=== PATIENT | female | born 2000 | race Caucasian/White ===

== ENCOUNTER 2022-01-13 15:46 | Emergency (ER) | payer OTHER, SELFPAY ==
--- NOTE | 2022-01-13 15:55 | ED.GENADULT ---
HPI - General Adult General Chief complaint: Skin/Abscess/Foreign Body Stated complaint: Nipple Pain Time Seen by Provider: 01/13/22 15:55 Source: patient and RN notes reviewed Mode of arrival: ambulatory Limitations: no limitations History of Present Illness HPI narrative: 21-year-old female presents to the [facility] with complaints of redness surrounding the nipple, nipple swelling and stated she has had drainage from it a couple of days ago. Symptoms x4 days. Denies fevers. Patient reports that she used to have her nipple pierced, removed prior to giving . Patient gave 6 to 7 months ago. Redness, swelling and pain started 4 days ago Related Data Home Medications Medication Instructions Recorded Confirmed norgestimate-ethinyl estradiol 1 tablet PO DAILY 01/13/22 01/13/22 [Sprintec (28)] Allergies Allergy/AdvReac Type Severity Reaction Status Date / Time No Known Allergies Allergy Unknown Verified 01/13/22 15:55 Review of Systems Review of Systems: All systems reviewed & are unremarkable except as noted in HPI and below Constitutional: Constitutional: Reports no additional constitutional complaints, Denies chills and Denies fever(s) Eyes: Eyes: Reports no additional eye complaints ENT: Reports system reviewed and no additional complaints, except as documented Cardiovascular: Cardiovascular: Reports no additional cardiovascular complaints Respiratory: Respiratory: Reports no additional respiratory complaints Gastrointestinal: Gastrointestinal: Reports no additional gastrointestinal complaints, Denies abdominal pain, Denies nausea and Denies vomiting Musculoskeletal: Musculoskeletal: Reports no additional musculoskeletal complaints Integumentary/Breasts: Skin/Breast: Reports as per HPI and Reports erythema (Areola redness and swelling of the nipple) Neurologic: Reports system reviewed and no additional complaints, except as documented Psychiatric: Psychiatric: Reports no additional psychiatric complaints Allergic/Immunologic: Allergic/Immunologic: Reports no additional allergic/immunologic complaints PMFSH Comments At the time of my signature, I reviewed and agree with the nursing past medical, surgical, social, and family history. There is no relevant family history pertinent to the patient complaint. Exam Const: General: healthy appearing, no acute distress and alert Nutritional Appearance: well nourished Orientation/consciousness: patient oriented x3 Limitations: no limitations HENMT: Head: normal to inspection Ears: external ears normal Eyes: Pupils: Equal, round and reactive pupils present Neck: Neck: normal visual inspection, no lymphadenopathy and no meningeal signs Chest: Chest palpation & inspection: normal inspection of the chest Resp: Effort & Inspection: normal respiratory effort and no use of accessory muscles Auscultation: clear to auscultation bilaterally, no crackles, no rales, no rhonchi and no wheezes Cardio: Rate: regular rate Rhythm: regular rhythm Skin: General skin exam: normal color Rashes: no rashes Other: Right areola redness with increased warmth and swelling extends 1 cm beyond circumferential of the areola, nipple is swollen. Firm, warm without fluctuance or drainage. Patient reports drainage 2 days ago. Neuro: General: patient oriented x3, moves all extremities, no meningeal signs and no focal motor deficits Cranial nerves: Yes Equal, round and reactive pupils present Speech: normal speech Gait exam (Neuro): Normal gait present Extrem: General: normal to inspection Psych: Appearance: grossly normal and well kempt Mental Status: mental status grossly normal Affect: normal affect Attitude: cooperative Thought content: Yes Normal thought content present Course Course Emergency Course: Discharge instructions reviewed with patient, as well as provided in writing per nursing staff. The instructions also include specific and strict return/GO T
[2022-01-13 15:58] VITALS: BP 118/69; PULSE 98; RESP 16; TEMP 35.8; O2SAT 100
== END 2022-01-13 16:12 | disposition home or self-care (01) ==
PROVIDERS: Emergency Provider Nurse Practitioner
DX: N61.0 Mastitis without abscess (principal)
CPT/HCPCS: 99213; G0463

== ENCOUNTER 2022-04-26 19:35 | Emergency (ER) | payer OTHER, SELFPAY ==
--- NOTE | ~2022-04-26 | XR_ITS ---
XR hand RT min 3V DATE: 04/26/2022 19:52 INDICATION: Right hand pain after punching something last night TECHNIQUE: 3 views COMPARISON: None FINDINGS: There is a minimally displaced fracture of the neck of the fifth metacarpal bone, of uncert ain age, possibly old. No other fracture or dislocation, periosteal reaction or bone destruction. IMPRESSION: Fifth metacarpal neck fracture, possibly old; recommend clinical correlation Reviewed, dictated and finalized at location A. IMPRESSION: Fifth metacarpal neck fracture, possibly old; recommend clinical co rrelation
--- NOTE | 2022-04-26 19:37 | ED.UPPEXIN ---
HPI - Extremity Injury (Upper) General Stated Complaint: Right Hand Pain Time Seen by Provider: 04/26/22 19:36 Source: patient Mode of arrival: ambulatory Limitations: no limitations History of Present Illness HPI narrative: Ms. Blackwell is a 22-year-old female patient presenting to the clinic today with complaints of right hand pain x1 day. She reports she punched something hard yesterday but does not recall what she punched. States she was upset so she punched something but she does not recall what she was upset about. Related Data Allergies Allergy/AdvReac Type Severity Reaction Status Date / Time No Known Allergies Allergy Unknown Verified 04/26/22 19:43 Review of Systems Review of Systems: Pertinent positives per HPI. Patient denies any fever, chills, rash, headache, visual changes, dizziness, cough, runny nose, sore throat, shortness of breath, chest pain, palpitations, nausea, vomiting, diarrhea, constipation, abdominal pain, or any urinary issues. PMFSH Comments At the time of my signature, I reviewed and agree with the nursing past medical, surgical, social, and family history. There is no relevant family history pertinent to the patient complaint. Exam Narrative: General: Well-developed, well nourished, in no apparent distress Head: Normocephalic, atraumatic. Cardio: Regular rate and rhythm, s1 and s2 normal, no murmur appreciated. Resp: Clear to auscultation bilaterally, no rhonchi, rales, wheezing or rubs. Musculoskeletal: No deformity, tender to palpation over the fourth and fifth metacarpals/fourth and fifth knuckles, swelling noted over the fourth and fifth knuckles and metacarpals, grossly normal range of motion, muscle strength strong and equal, peripheral pulse strong, no cyanosis, normal gait and station Course Course Emergency Course: Portions of this record may have been created with voice recognition software. Level of Care: Express Care Visit Vital Signs Vital signs: Vital signs reviewed MDM - Extremity Injury (Upper) MDM Narrative Medical decision making narrative: At the time of visit patient is resting comfortably on the exam table. She is having pain over the fourth and fifth metacarpals and PIP joints. X-ray of the right hand was performed and shows a probable fracture of the right fifth metacarpal neck. volar OCL was applied to the right hand. Referral given to Dr. Hurley. Supportive measures were discussed with the patient she voiced understanding of discharge instructions and agrees to the treatment plan. Differential Diagnosis Differential diagnosis: Likely finger sprain, dislocation of finger, Colles' fracture and fracture of hand Imaging Data My impression: Probable fracture of the right fifth metacarpal neck Radiologist's impression: [facility] [address] [place] [address] XRay Report Signed Patient: Chuy Bender : 2000 MR#: [id number] Age/Sex: 22 / F Acct:[id number] Loc: [facility]? ? ADM Date: 04/26/22Attending Dr: Ordering Physician: Everardo Justice APRN Date of Service: 04/26/22 Procedure(s): XR hand RT min 3V Accession Number(s): [id number] cc: Everardo Justice APRN; CANDY [employer]INTER PHYSICIAN~ XR hand RT min 3V DATE: 04/26/2022 19:52 INDICATION: Right hand pain after punching something last night? TECHNIQUE: 3 views? COMPARISON: None? FINDINGS: There is a minimally displaced fracture of the neck of the fifth metacarpal bone, of uncertain age, possibly old. ? No other fracture or dislocation, periosteal reaction or bone destruction. IMPRESSION: Fifth metacarpal neck fracture, possibly old; recommend clinical correlation? Reviewed, dictated and finalized at location A. Dictated By:? Abdiel Pollack MD? 04/26/221951 Signed By:? ? <Elec
[2022-04-26 19:42] VITALS: BP 126/85; PULSE 108; RESP 16; TEMP 36.5; O2SAT 99
== END 2022-04-26 20:11 | disposition home or self-care (01) ==
PROVIDERS: Emergency Provider Nurse Practitioner Family
DX: S62.336A Displaced fracture of neck of fifth metacarpal bone, right hand, initial encounter for closed fracture (principal); W22.8XXA Striking against or struck by other objects, initial encounter
CPT/HCPCS: 29125; 73130; 99214; G0463

== ENCOUNTER 2023-05-22 12:59 | Emergency (ER) | payer OTHER, SELFPAY ==
--- NOTE | 2023-05-22 13:02 | ED.FEMALEGU ---
HPI - Female Genitourinary General Chief complaint: Urogenital-Female Stated complaint: Blood In Urine Time Seen by Provider: 05/22/23 13:02 Source: patient Mode of arrival: ambulatory Limitations: no limitations History of Present Illness HPI Narrative: Patient is a 23-year-old female that states she has abdominal pain and blood in urine for 3 days. Also reports frequency. Does states she has had a new sexual partner and has some concern for STDs. Patient reports she is having pain with urination and is cold with fever over 100. States abdominal pain and right flank pain is sharp and has worsened over the last 3 days. Has been nauseous but denies any episodes of vomiting. Also reports constipation and has not had a bowel movement in several days which is abnormal for her. Has not taken any pain medicine today. Currently taking Macrobid and Pyridium for UTI that she started roughly 6 days ago. States her urine is orange all the time from the Pyridium but states at times it looks red. MD elicited complaint: dysuria Related Data Home Medications Medication Instructions Recorded Confirmed nitrofurantoin 100 mg DIRECTED 05/22/23 05/22/23 monohydrate/macrocrystals 100 mg capsule phenazopyridine 200 mg tablet 200 mg DIRECTED 05/22/23 05/22/23 Allergies Allergy/AdvReac Type Severity Reaction Status Date / Time No Known Allergies Allergy Unknown Verified 04/26/22 19:43 Review of Systems Review of Systems: All systems reviewed & are unremarkable except as noted in HPI and below Constitutional: Constitutional: Denies chills, Reports fever(s), Denies headache(s), Denies malaise and Denies weakness Eyes: Eyes: Denies change in vision, Denies eye discharge and Denies irritation ENT: Denies otalgia, Denies headache(s), Denies nasal congestion, Denies nasal discharge, Denies sinus pain and Denies sore throat Cardiovascular: Cardiovascular: Denies chest pain, Denies edema, Denies palpitations and Denies dyspnea Respiratory: Respiratory: Denies cough and Denies dyspnea Gastrointestinal: Gastrointestinal: Reports abdominal pain, Denies diarrhea, Reports nausea and Denies vomiting Genitourinary: Genitourinary: Reports hematuria, Reports nocturia, Reports dysuria, Reports flank pain and Reports urinary urgency Musculoskeletal: Musculoskeletal: Denies back pain and Denies numbness Integumentary/Breasts: Skin/Breast: Denies pruritus and Denies rash Neurologic: Denies headache(s), Denies numbness and Denies weakness Psychiatric: Psychiatric: Reports no additional psychiatric complaints Endocrine: Endocrine: Denies palpitations PMFSH Comments At time of signature, agree with nursing past medical, surgical, social and family history. There is no relevant family history pertinent to the presenting complaint. Exam Const: General: cooperative, healthy appearing, comfortable, no acute distress and well nourished Nutritional Appearance: well nourished Orientation/consciousness: patient oriented x3 HENMT: Head: normocephalic and atraumatic Ears: external ears normal Face/Nose/Sinus: Normal external nose present, Normal nares present and normal facial exam Face and sinus: normal facial exam Eyes: General: appearance normal, both eyes and all related structures Pupils: Equal, round and reactive pupils present EOM: EOMs intact bilaterally Neck: Neck: normal visual inspection, full ROM and supple Chest: Chest palpation & inspection: normal inspection of the chest Resp: Effort & Inspection: normal respiratory effort and able to speak in complete sentences Cardio: Rate: regular rate Rhythm: regular rhythm GI: Inspection: normal to inspection GI Palp: Yes abdominal tenderness, Yes Soft to palpation, Yes Tenderness to palpation present (GI) (Right upper quadrant and pelvis), Yes Guarding due to palpation present (GI) (With right upper quadrant palpation), No Palpable mass present and No Rebound tenderness present A
[2023-05-22 13:08] VITALS: BP 118/67; PULSE 94; RESP 14; TEMP 37.3; O2SAT 100
== END 2023-05-22 13:34 | disposition short-term general hospital (02) ==
PROVIDERS: Emergency Provider Nurse Practitioner Family
DX: R10.11 Right upper quadrant pain (principal); R31.9 Hematuria, unspecified
CPT/HCPCS: 81003; 81025; 87086; 87088; 87491; 87591; 87661; 99214; G0463

== ENCOUNTER 2023-05-22 13:55 | Observation (INO) | payer OTHER, SELFPAY ==
--- NOTE | ~2023-05-22 | CT_ITS ---
EXAMINATION: CT abdomen pelvis w con DATE: 05/22/2023 16:36 INDICATION: Right flank pain. Hematuria. TECHNIQUE: Computed tomography (CT) of the abdomen and pelvis was performed with 100 mL Omnipaque-350 intravenous contrast. Automated exposure control and iterative reconstruction technique were employe d. The dose-length product was 320.11 mGy-cm. COMPARISON: None FINDINGS: Lung bases are clear. Heart size is normal. No pericardial or pleural effusion. Liver, gallbladder, s pleen, pancreas and bilateral adrenal glands are normal. 5 mm cyst at the upper pole of the left kidn ey. There are small geographic regions of hypoenhancement at the mid to upper right kidney suspicious for pyelonephritis. No hydronephrosis or evident urolithiasis. Couple tiny foci of gas within the bl adder. Uterus and bilateral adnexa are unremarkable. Bowels including the appendix are normal. Mild t horacolumbar dextrocurvature. IMPRESSION: 1. Geographic regions of hypoenhancement in the right kidney suspicious for pyelonephritis.. Reviewed, dictated and finalized at location A. IMPRESSION: 1. Geographic regions of hypoenhancement in the right kidney suspicious for adrien lonephritis..
[2023-05-22 14:05] VITALS: BP 126/67; PULSE 83; RESP 16; TEMP 36.6; O2SAT 100
[2023-05-22 15:35] LABS: Basophils Percent Auto 0.3 % (0.2-1.2); Eosinophils Percent Auto 0.1 % (0-4.4); Hematocrit 42.9 % (37.0-47.0); Hemoglobin 14.4 g/dL (12.0-15.0); Immature Granulocyte Absolute 0.04 K/mm3 (0.00-0.031); Immature Granulocyte Percent A 0.4 % (0-0.5); Lymphocytes Absolute Auto 0.85 K/mm3 (0.9-3.2); Mean Corpuscular HGB Conc 33.6 g/dl (32-36); Mean Corpuscular Volume 92.3 fl (80-100); Mean Platelet Volume 9.5 fl (7.4-10.4); Monocytes Absolute Auto 1.1 K/mm3 (0.1-0.6); Monocytes Percent Auto 10.1 % (2.6-8.5); Neutrophils Absolute Auto 8.6 K/mm3 (1.3-6.7); Neutrophils Percent Auto 81.1 % (45.5-73.1); Platelet Count Result 242 k/mm3 (150-375); Red Blood Count 4.65 M/mm3 (4.2-5.4); Red Cell Distribution Width 12.9 % (11.5-14.5); White Blood Count 10.6 K/mm3 (4.5-10.0)
[2023-05-22 15:43] LABS: Appearance Urine Cloudy (Clear); Bacteria Urine Rare /hpf; Bilirubin Urine 1+ (Negative); Blood Urine Negative (Negative); Color Urine Dark Yellow (Yellow); Glucose Urine UA Negative (Negative); Ketones Urine Trace mg/dL (Negative); Leukocyte Esterase Ur 1+ LEU/UL (Negative); Nitrate Urine Positive (Negative); Non Pathogenic Casts 0-2; Protein Urine 1+ mg/dL (Negative); RBC Urine 0-2 /hpf (0-2); Specific Grav Ur 1.017 (1.001-1.035); Squamous Epithelial Cell Urine Moderate /hpf (Few)
[2023-05-22 15:44] LABS: Alanine Aminotransferase 27 U/L (6-35); Alkaline Phosphatase 72 U/L (38-126); Anion Gap 10 mmol/L (8-16); Aspartate Amino Transferase 33 U/L (14-36); Bilirubin,Total 0.9 mg/dL (0.2-1.3); Blood Urea Nitrogen 8 mg/dL (7-17); Calcium 9.5 mg/dL (8.4-10.2); Carbon Dioxide 27 mmol/L (22-30); Chloride 96 mmol/L (98-107); Estimated CRCL calculation 92 ml/min; Estimated Glomerular Filt Rate > 60; Glucose 118 mg/dL (65-110); Potassium 3.8 mmol/L (3.4-5.0); Sodium 133 mmol/L (137-145)
[2023-05-22 15:46] LABS: Add Urine Microscopic? YES
--- NOTE | 2023-05-22 16:06 | ED.ABDPAIN ---
HPI - Abdominal Pain General Chief Complaint: Abdominal Pain Stated Complaint: ABD PAIN, HEMATURIA X3D Time Seen by Provider: 05/22/23 15:41 History of Present Illness HPI narrative: Patient is a 23-year-old female presenting with flank pain. Patient states over the last several days she has had right-sided flank pain associated with dysuria and hematuria. States that she went to urgent care who advised that she come in for evaluation. Reports nausea but no vomiting. Denies changes in bowel movements. Denies fevers, headache, chest pain, shortness of breath, cough, leg swelling. States that she does have some right lower quadrant pain as well. Related Data Allergies Allergy/AdvReac Type Severity Reaction Status Date / Time No Known Allergies Allergy Unknown Verified 05/22/23 17:03 Review of Systems Review of Systems: All systems reviewed & are unremarkable except as noted in HPI and below PMFSH Social History Social History Smoking packs per day: 0.5 Smoking cigarettes per day: 10.0 Years smoked: 5 Smoking pack-years: 2.50 Smoking status: Current every day smoker Tobacco type: cigarettes Alcohol intake: current Drinks per week: 14 Substance use type: marijuana Last use: 05/18/2023 Lack of Transportation: YES Lack of Food: Sometimes True Current Housing: I Do Not Have Housing Concerned About Future Housing: YES Difficulty Paying Gas/Electric Bills: YES Difficulty Paying for Meds: No Currently Unemployed: YES Education: Grade School Difficulty w/ Childcare or Family Care: No Spiritual care concerns: No Exam Narrative: GENERAL: Uncomfortable appearing, in no acute distress, pleasant and cooperative HEAD: Normocephalic, atraumatic. EYES: PERRLA and EOMI. ENT: Nares clear, no rhinorrhea or epistaxis. Mucous membranes moist. NECK: Supple. CHEST: Clear to auscultation. No respiratory distress. HEART: Regular rate and rhythm. No murmur heard. Normal peripheral pulses. ABDOMEN: Soft, mild right lower quadrant tenderness without guarding or rebound; + right CVA tenderness EXTREMITIES: Normal range of motion. No edema. SKIN: Warm, dry, no rash. NEURO: No focal deficits. Alert and oriented x3. PSYCH: Normal mood and affect. Course Vital Signs Vital signs: Vital Signs Temperature 97.9 F 05/22/23 14:05 Pulse Rate 83 05/22/23 14:05 Respiratory Rate 16 05/22/23 14:05 Blood Pressure 126/67 05/22/23 14:05 Pulse Oximetry 100 05/22/23 14:05 Oxygen Delivery Room Air 05/22/23 14:05 Temperature 97 F L 05/25/23 05:34 Pulse Rate 69 05/25/23 05:34 Respiratory Rate 18 05/25/23 07:54 Blood Pressure 106/60 05/25/23 05:34 Pulse Oximetry 99 05/25/23 07:54 Oxygen Delivery Room Air 05/25/23 07:54 MDM - Abdominal Pain MDM Narrative Medical decision making narrative: Patient is a 23-year-old female presenting with right flank pain and hematuria. Vitals within normal limits. Exam remarkable for the above. UA with positive nitrates, many WBCs. Patient CT abdomen pelvis is concerning for pyelonephritis. Patient has been given a dose of IV Rocephin. She is receiving a second liter of fluids. Feel it is safest to keep her in the hospital for IV antibiotics and monitoring. Patient is agreeable with this plan. I spoke with the hospitalist who is excepted her for admission. Differential Diagnosis Differential diagnosis: Likely abdominal pain, calculus of kidney, diverticulitis, pancreatitis and other (Pyelonephritis, UTI, GINA, dehydration) Medical Records Attestation: I reviewed the patient's medical records. Lab Data Attestation: I reviewed the patient's lab results. 05/25/23 04:47 05/25/23 04:47 Labs: Lab Results 05/22/23 Range/Units 15:26 WBC 10.6 H (4.5-10.0) K/mm3 RBC 4.65 (4.2-5.4) M/mm3 Hgb 14.4 (12.0-15.0) g/dL Hct 42.9 (37.0-47.0)
[2023-05-22 16:19] LABS: Pregnancy On Board Control Positive; Urine Pregnancy Test Negative
[2023-05-22] MEDS: SODIUM CHLORIDE 0.9% IV 1,000 ML 999 ML IV CONT ×2 (16:20→18:32)
[2023-05-22] MEDS: HYDROmorphone HCL INJ (*CRX) 1 MG/ML SYR 0.5 MG IV PUSH (16:21)
[2023-05-22 16:54] VITALS: PULSE 102; RESP 22; O2SAT 97
[2023-05-22 17:03] VITALS: BP 130/83; PULSE 99; RESP 22; O2SAT 98
[2023-05-22 19:33] VITALS: BP 144/99; PULSE 85; RESP 18; O2SAT 98
--- NOTE | 2023-05-22 20:11 | PM.IMHP ---
H&P: HPI History of Present Illness Date/Time: 05/22/23 20:11 Chief Complaint: Flank pain Narrative: This is a 23-year-old female with known significant past medical history patient presents with back pain and pain and burning with urination for letter last week or so, nausea, vomiting. Patient had Macrobid in the outpatient setting. EXAMINATION: CT abdomen pelvis w con DATE: 05/22/2023 16:36 INDICATION: Right flank pain. Hematuria. TECHNIQUE: Computed tomography (CT) of the abdomen and pelvis was performed with 100 mL Omnipaque-350 intravenous contrast. Automated exposure control and iterative reconstruction technique were employed. The dose-length product was 320.11 mGy-cm. COMPARISON: None FINDINGS: Lung bases are clear. Heart size is normal. No pericardial or pleural effusion. Liver, gallbladder, spleen, pancreas and bilateral adrenal glands are normal. 5 mm cyst at the upper pole of the left kidney. There are small geographic regions of hypoenhancement at the mid to upper right kidney suspicious for pyelonephritis. No hydronephrosis or evident urolithiasis. Couple tiny foci of gas within the bladder. Uterus and bilateral adnexa are unremarkable. Bowels including the appendix are normal. Mild thoracolumbar dextrocurvature. IMPRESSION: 1. Geographic regions of hypoenhancement in the right kidney suspicious for pyelonephritis.. Review of Systems Review of Systems: Flank pain, pain or burning urination. Constitutional: Constitutional: Reports chills, Reports fatigue, Reports fever(s), Reports malaise, Denies night sweats and Reports poor appetite Eyes: Eyes: Denies change in vision ENT: Denies dysphagia, Denies vertigo, Denies dizziness and Denies odynophagia Cardiovascular: Cardiovascular: Denies chest pain, Denies radiating jaw, neck or arm pain and Denies palpitations Respiratory: Respiratory: Denies cough Gastrointestinal: Gastrointestinal: Reports abdominal pain, Denies dyspepsia, Reports diarrhea, Reports nausea and Reports vomiting Genitourinary: Genitourinary: Reports dysuria and Reports flank pain Musculoskeletal: Musculoskeletal: Reports back pain Integumentary/Breasts: Skin/Breast: Denies rash Neurologic: Denies focal weakness and Denies Sensory deficit (Neuro) Psychiatric: Psychiatric: Reports no additional psychiatric complaints and Reports as per HPI Endocrine: Endocrine: Denies cold intolerance, Denies flushing, Denies heat intolerance, Denies polyphagia, Denies polydipsia and Denies palpitations Hematologic/Lymphatic: Hematologic/Lymphatic: Reports no additional hematologic/lymphatic complaints and Reports as per HPI Allergic/Immunologic: Allergic/Immunologic: Reports no additional allergic/immunologic complaints and Reports as per HPI [facility] Social History Social History Smoking packs per day: 0.5 Smoking cigarettes per day: 10.0 Years smoked: 5 Smoking pack-years: 2.50 Smoking status: Current every day smoker Tobacco type: cigarettes Alcohol intake: current Drinks per week: 14 Substance use type: marijuana Last use: 05/18/2023 Lack of Transportation: YES Lack of Food: Sometimes True Current Housing: I Do Not Have Housing Concerned About Future Housing: YES Difficulty Paying Gas/Electric Bills: YES Difficulty Paying for Meds: No Currently Unemployed: YES Education: Grade School Difficulty w/ Childcare or Family Care: No Spiritual care concerns: No Meds Home Medications and Allergies Home Medications Medication Instructions Recorded Confirmed Type No Home Medications 05/22/23 05/22/23 History Allergies Allergy/AdvReac Type Severity Reaction Status Date / Time No Known Allergies Allergy Unknown Verified 05/22/23 17:03 Vital Signs Vital Signs - 24 hr 05/22/23 14:05 05/22/23 17:03 05/22/23 16:54 Temperature 97.9 F Pulse Rate 83 99 102 H Respiratory Rate 16
--- NOTE | 2023-05-22 21:04 | PC.NURSE ---
2101-CALLED TO FLOOR TO GIVE REPORT. RECEIVING NURSE UNAVAILABLE AND WILL CALL ER NURSE BACK FOR REPORT.
--- NOTE | 2023-05-22 21:13 | PC.NURSE ---
211-REPORT TO WIN SULLIVAN.
[2023-05-22 21:30] VITALS: BP 127/80; PULSE 82; RESP 18; TEMP 37.2; O2SAT 99
[2023-05-22 21:37] VITALS: BMI 22.8
--- NOTE | 2023-05-22 21:42 | ADMGEN ---
This patient, Chuy Bender, was admitted to Medical Room 252-01. Patient/family oriented to hospital policies and general routines including ID bracelet, bed and alarms, visiting hours, pain management, procedures, bathroom and other care routines, personal items, smoking policy, room service/diet, and visiting hours. Information on how to activate the Rapid Response Team has been discussed. Patient/Family are encouraged to report perceived risks to care and to ask questions if they do not understand what they are told or what they should do.
[2023-05-23] MEDS: PIPERACILLN/TAZ 3.375GM/NS50ML 3.375 GM/50 ML BAG IVPB ×4 (03:18→22:53)
[2023-05-23 06:00] VITALS: BP 136/65; PULSE 86; RESP 18; TEMP 37.1; O2SAT 96
[2023-05-23] MEDS: ACETAMINOPHEN 325 MG TABLET 650 MG PO ×2 (07:56→20:55)
--- NOTE | 2023-05-23 12:48 | PM.IMPN ---
Progress Note: A&P Assessment and Plan (1) Pyelonephritis: Code(s): N12 - Tubulo-interstitial nephritis, not specified as acute or chronic Status: Acute Assessment and Plan: Admit to regular medical floor Patient was started on Rocephin in the emergency room Rocephin has been discontinued Started Zosyn Cultures in progress Added blood cultures this morning, pending (2) Back pain: Code(s): M54.9 - Dorsalgia, unspecified Status: Acute Assessment and Plan: Tylenol as needed Likely secondary to pyelonephritis as pain is located to the right CVA. She says that she does not have pain at rest only when she is moving around. She appears to be resting comfortably (3) N&V (nausea and vomiting): Code(s): R11.2 - Nausea with vomiting, unspecified Status: Acute Assessment and Plan: Supportive care Clear liquids and advanced as tolerated. She says she is not eating or drinking much. Will start her on NS at 100 mL an hour Subjective Date/time seen: 05/23/23 12:48 Interval history: HPI is obtained from the record This is a 23-year-old female with known significant past medical history patient presents with back pain and pain and burning with urination for letter last week or so, nausea, vomiting.? Patient had Macrobid in the outpatient setting. 05/23: Patient is seen today resting in bed asleep. She does not appear in any acute distress. She is difficult to arouse and reluctant to participate in interview. She keeps falling asleep after giving and answered my question. She says that she feels like she has been having a fever and feels ?crappy?. She says that her oral intake is poor and she is having pain in her back more so on her right. The pain is worse when she is up and moving around. When she is resting she does not have pain. She denies dysuria but she is also taking Pyridium. Her urine has been orange. ROS is limited due to her lack of participation. Review of Systems Review of Systems: ROS unobtainable: Yes other Exam Narrative: General: well-nourished, ill appearing 23 year old female, asleep in bed, appears fairly comfortable, NARD Neuro: drowsy and oriented x4, speech clear, no focal neuro deficits noted HEENMT: normocephalic, atraumatic, EOMI, sclerae anicteric, moist oral mucosa Respiratory: Clear to auscultation bilaterally without crackles, rhonchi or wheezes, nonlabored breathing Cardio: regular rate, regular rhythm with S1-S2 Abdomen: nondistended, normoactive bowel sounds, soft, nontender to palpation Musculoskeletal: Right flank tenderness. CVA tenderness +. Extremities: no edema, erythema, or tenderness to palpation, DP pulses 2+ bilaterally Skin: no rashes or lesions, warm and dry Psych: tired, withdrawn, lack of participation in interview. Objective Data Vital Signs Vital Signs: Vital Signs - 24 hr 05/22/23 14:05 05/22/23 17:03 05/22/23 16:54 Temperature 97.9 F Pulse Rate 83 99 102 H Respiratory Rate 16 22 H 22 H Blood Pressure 126/67 130/83 Pulse Oximetry 100 98 97 Oxygen Delivery Room Air 05/22/23 19:33 05/22/23 21:30 05/22/23 22:32 Temperature 99.0 F Pulse Rate 85 82 Respiratory Rate 18 18 Blood Pressure 144/99 H 127/80 Pulse Oximetry 98 99 Oxygen Delivery Room Air 05/23/23 06:00 Temperature 98.8 F Pulse Rate 86 Respiratory Rate 18 Blood Pressure 136/65 Pulse Oximetry 96 Oxygen Delivery Intake/Output Intake/Output: Intake & Output 05/20/23 05/21/23 05/22/23 05/23/23 23:59 23:59 23:59 23:59 Intake Total 2049 100 Balance 2049 100 Meds/Results Medications: Active Medications Generic Name Dose Route Start Last Admin Trade Name Treeq PRN Reason Stop Dose Admin Acetaminophen 650 mg 05/23/23 07:17 05/23/23 07:56 Acetaminophen 325 Mg Tablet PO 650 mg Q4H PRN Administration Pain Rated 4-6 Piperacillin/Tazobactam/Dextrose 3.375 gm in 50 mls @ 100 mls/hr 05/23/23
[2023-05-23 13:23] LABS: Basophils Percent Auto 0.3 % (0.2-1.2); Eosinophils Percent Auto 0.2 % (0-4.4); Hematocrit 40.2 % (37.0-47.0); Hemoglobin 13.8 g/dL (12.0-15.0); Immature Granulocyte Absolute 0.06 K/mm3 (0.00-0.031); Immature Granulocyte Percent A 0.5 % (0-0.5); Lymphocytes Absolute Auto 1.74 K/mm3 (0.9-3.2); Lymphocytes Percent Auto 15.2 % (18.3-44.2); Mean Corpuscular HGB Conc 34.3 g/dl (32-36); Mean Corpuscular Volume 90.3 fl (80-100); Mean Platelet Volume 9.3 fl (7.4-10.4); Monocytes Percent Auto 17.1 % (2.6-8.5); Neutrophils Absolute Auto 7.6 K/mm3 (1.3-6.7); Neutrophils Percent Auto 66.7 % (45.5-73.1); Platelet Count Result 218 k/mm3 (150-375); Red Blood Count 4.45 M/mm3 (4.2-5.4); Red Cell Distribution Width 12.4 % (11.5-14.5); White Blood Count 11.4 K/mm3 (4.5-10.0)
[2023-05-23] MEDS: SODIUM CHLORIDE 0.9% IV 1,000 ML 100 ML IV CONT (13:37)
--- NOTE | 2023-05-23 13:42 | PCCCNOTE ---
On 05/23/23, the student, [Lisa Ramsey], provided care and completed [facility] documentation on this patient. I have reviewed the student's documentation and agree with the findings.
[2023-05-23 13:51] LABS: Alanine Aminotransferase 22 U/L (6-35); Albumin Level 4.2 g/dL (3.5-5.1); Alkaline Phosphatase 60 U/L (38-126); Anion Gap 5 mmol/L (8-16); Aspartate Amino Transferase 23 U/L (14-36); Bilirubin,Total 0.9 mg/dL (0.2-1.3); Blood Urea Nitrogen 8 mg/dL (7-17); Carbon Dioxide 29 mmol/L (22-30); Chloride 99 mmol/L (98-107); Estimated CRCL calculation 84 ml/min; Estimated Glomerular Filt Rate > 60; Glucose 116 mg/dL (65-110); Potassium 3.5 mmol/L (3.4-5.0); Sodium 133 mmol/L (137-145)
[2023-05-23 14:10] VITALS: BP 112/66; PULSE 91; RESP 16; TEMP 36.4; O2SAT 97
--- NOTE | 2023-05-23 14:48 | PCCCNOTE ---
On 05/23/23, the student, [Lisa Ramsey], provided care and completed [facility] documentation on this patient. I have reviewed the student's documentation and agree with the findings.
[2023-05-23 20:12] VITALS: BP 119/67; PULSE 73; RESP 20; TEMP 36.7; O2SAT 97
[2023-05-23] MEDS: NICOTINE (*PBKC) 14 MG PATCH 1 PATCH TRANSDERM (20:55)
[2023-05-24] MEDS: SODIUM CHLORIDE 0.9% IV 1,000 ML 100 ML IV CONT (01:56)
[2023-05-24] MEDS: PIPERACILLN/TAZ 3.375GM/NS50ML 3.375 GM/50 ML BAG IVPB ×4 (02:30→20:05)
[2023-05-24 03:21] VITALS: BP 113/64; PULSE 79; RESP 18; TEMP 37; O2SAT 98
[2023-05-24 08:06] VITALS: RESP 18; O2SAT 98
[2023-05-24] MEDS: ACETAMINOPHEN 325 MG TABLET 650 MG PO ×2 (11:40→22:26)
[2023-05-24 14:00] VITALS: BP 101/65; PULSE 82; RESP 16; TEMP 36.8; O2SAT 100
--- NOTE | 2023-05-24 14:19 | PM.IMPN ---
Progress Note: A&P Assessment and Plan (1) Pyelonephritis: Code(s): N12 - Tubulo-interstitial nephritis, not specified as acute or chronic Status: Acute Assessment and Plan: Admit to regular medical floor Started Zosyn Urine culture showed no organism but could be related to high presence of urogenital derrek. Blood cultures with no growth to date. (2) Back pain: Code(s): M54.9 - Dorsalgia, unspecified Status: Acute Assessment and Plan: Tylenol as needed Likely secondary to pyelonephritis as pain is located to the right CVA. She says that she does not have pain at rest only when she is moving around. She appears to be resting comfortably (3) N&V (nausea and vomiting): Code(s): R11.2 - Nausea with vomiting, unspecified Status: Acute Assessment and Plan: Drinking and eating without difficulty. Will stop IV fluids. Subjective Date/time seen: 05/24/23 14:19 Interval history: HPI is obtained from the record This is a 23-year-old female with known significant past medical history patient presents with back pain and pain and burning with urination for letter last week or so, nausea, vomiting.? Patient had Macrobid in the outpatient setting. 05/23: Patient is seen today resting in bed asleep. She does not appear in any acute distress. She is difficult to arouse and reluctant to participate in interview. She keeps falling asleep after giving and answered my question. She says that she feels like she has been having a fever and feels ?crappy?. She says that her oral intake is poor and she is having pain in her back more so on her right. The pain is worse when she is up and moving around. When she is resting she does not have pain. She denies dysuria but she is also taking Pyridium. Her urine has been orange. ROS is limited due to her lack of participation. 05/24: Patient is seen today after showering and having breakfast. She looks much better than yesterday. She participates in conversation, has an appropriate affect, and asks questions regarding her care. Yesterday she was feeling so poorly and slept most of the day. She is now eating and drinking and her pain is considerably improved. I spoke with her about the plan to continue IV antibiotics today and if she looks and feels good tomorrow then she can likely discharge home with oral antibiotics. She is agreeable to this plan. Review of Systems Review of Systems: All systems reviewed & are unremarkable except as noted in HPI and below Exam Narrative: General: well-nourished, well appearing 23 year old female, awake in bed, appears comfortable, NARD Neuro: alert and oriented x4, speech clear, no focal neuro deficits noted HEENMT: normocephalic, atraumatic, EOMI, sclerae anicteric, moist oral mucosa Respiratory: Clear to auscultation bilaterally without crackles, rhonchi or wheezes, nonlabored breathing Cardio: regular rate, regular rhythm with S1-S2 Abdomen: nondistended, normoactive bowel sounds, soft, nontender to palpation Musculoskeletal: Right flank tenderness with surrounding tenderness to palpation but improved Extremities: no edema, erythema, or tenderness to palpation, DP pulses 2+ bilaterally Skin: no rashes or lesions, warm and dry Psych: pleasant, appropriate Objective Data Vital Signs Vital Signs: Vital Signs - 24 hr 05/23/23 20:12 05/23/23 20:00 05/24/23 03:21 Temperature 98.1 F 98.6 F Pulse Rate 73 79 Respiratory Rate 20 18 Blood Pressure 119/67 113/64 Pulse Oximetry 97 98 Oxygen Delivery Room Air 05/24/23 08:06 Temperature Pulse Rate Respiratory Rate 18 Blood Pressure Pulse Oximetry 98 Oxygen Delivery Room Air Intake/Output Intake/Output: Intake & Output 05/21/23 05/22/23 05/23/23 05/24/23 23:59 23:59 23:59 23:59 Intake Total 2049 1889 1896 Balance 2049 1889 1896 Meds/Results Medications: Active Medications Generic Name Dose Route Start Last Ad
[2023-05-24] MEDS: NICOTINE (*PBKC) 14 MG PATCH 1 PATCH TRANSDERM (17:56)
[2023-05-24 19:17] VITALS: BP 111/63; PULSE 79; RESP 16; TEMP 36.2; O2SAT 100
[2023-05-25] MEDS: PIPERACILLN/TAZ 3.375GM/NS50ML 3.375 GM/50 ML BAG IVPB (02:39)
[2023-05-25 05:19] LABS: Basophils Percent Auto 0.3 % (0.2-1.2); Eosinophils Absolute Auto 0.2 K/mm3 (0-0.3); Eosinophils Percent Auto 2.6 % (0-4.4); Hematocrit 36.8 % (37.0-47.0); Hemoglobin 12.4 g/dL (12.0-15.0); Immature Granulocyte Absolute 0.04 K/mm3 (0.00-0.031); Immature Granulocyte Percent A 0.6 % (0-0.5); Lymphocytes Absolute Auto 2.05 K/mm3 (0.9-3.2); Lymphocytes Percent Auto 29.9 % (18.3-44.2); Mean Corpuscular HGB Conc 33.7 g/dl (32-36); Mean Corpuscular Hemoglobin 30.6 pg (26-34); Mean Corpuscular Volume 90.9 fl (80-100); Mean Platelet Volume 9.8 fl (7.4-10.4); Neutrophils Absolute Auto 3.6 K/mm3 (1.3-6.7); Neutrophils Percent Auto 52.6 % (45.5-73.1); Platelet Count Result 243 k/mm3 (150-375); Red Blood Count 4.05 M/mm3 (4.2-5.4); Red Cell Distribution Width 12.3 % (11.5-14.5); White Blood Count 6.9 K/mm3 (4.5-10.0)
[2023-05-25 05:32] LABS: Anion Gap 7 mmol/L (8-16); Blood Urea Nitrogen 10 mg/dL (7-17); Calcium 8.7 mg/dL (8.4-10.2); Carbon Dioxide 29 mmol/L (22-30); Chloride 101 mmol/L (98-107); Estimated CRCL calculation 122 ml/min; Estimated Glomerular Filt Rate > 60; Glucose 106 mg/dL (65-110); Potassium 3.7 mmol/L (3.4-5.0); Sodium 137 mmol/L (137-145)
[2023-05-25 05:34] VITALS: BP 106/60; PULSE 69; RESP 17; TEMP 36.1; O2SAT 99
[2023-05-25 07:54] VITALS: RESP 18; O2SAT 99
[2023-05-25] MEDS: levoFLOXacin 750 MG TABLET PO (09:26)
== END 2023-05-25 10:05 | disposition home or self-care (01) ==
LOC: ANHED 16:04 → ANH2MED 21:51
PROVIDERS: Emergency Medicine; Nurse Practitioner Acute Care; Admitting Provider Internal Medicine; Emergency Provider Emergency Medicine; Visit Provider Internal Medicine
DX: N12 Tubulo-interstitial nephritis, not specified as acute or chronic (principal); M54.9 Dorsalgia, unspecified; R11.2 Nausea with vomiting, unspecified; F17.210 Nicotine dependence, cigarettes, uncomplicated; F10.90 Alcohol use, unspecified, uncomplicated; F12.90 Cannabis use, unspecified, uncomplicated; F15.90 Other stimulant use, unspecified, uncomplicated; R63.0 Anorexia; Z68.22 Body mass index [BMI] 22.0-22.9, adult
CPT/HCPCS: 36415; 74177; 80048; 80053; 81001; 81003; 81025; 85025; 87040; 87086; 87491; 87591; 87661; 96361; 96365; 96366; 96375; 99285; A9270; G0378; G0379; J0696; J1170; J2543; J7030; Q9967